=== PATIENT | male | born 1950 | race Caucasian/White ===

== ENCOUNTER 2016-10-03 14:33 | Inpatient (IN) | payer BC, OTHER ==
[~2016-10-03] VITALS: Ht 172.7 cm; Wt 76.0 kg
[~2016-10-03 14:33] MED LIST: ATOR10TA65 PO; CARV25TA97 PO; CHOL2000 PO; CILO100T PO; FER325 PO; FOLI-49 PO; GLUC1VIA7 IM; HYDR-3672 GTB; ISOS20TA19 PO; NOVO3I SC; TAMS-14 PO
[2016-10-03] MEDS ORDERED: CILO50TA PO (17:23)
[2016-10-03] MEDS ORDERED: HYDR-3671 PO (17:24)
[2016-10-03] MEDS ORDERED: CALC0.255 PO (17:24)
[2016-10-03] MEDS ORDERED: BUME2TAB PO (17:25)
[2016-10-03] MEDS ORDERED: SPIR100T31 PO (17:25)
[2016-10-03] MEDS ORDERED: LOSA100T7 PO (17:26)
[2016-10-03] MEDS ORDERED: AMLO5TAB4 PO (17:26)
[2016-10-03] MEDS ORDERED: PIOG45TA15 PO (17:27)
--- NOTE | 2016-10-03 17:45 | RADRPT ---
PROCEDURE: CHEST 1VW CLINICAL INDICATION: Abdominal pain TECHNIQUE: Single frontal view of the chest was obtained COMPARISON: 05/26/2016 FINDINGS: The cardiac size is mildly enlarged, stable. Aortic vascular calcifications are demonstrated. There is no pulmonary vascular congestion. The lungs are clear. No consolidation, effusion, or pneumothorax. Mild degenerative changes of the visualized osseous structures are visualized. IMPRESSION: 1. No acute cardiopulmonary process. 2. Atherosclerosis with stable mild cardiomegaly. RPTAT:PP .Best Go MD, Date Time Electronically viewed and signed by .Best Go MD, on 10/03/2016 17:44 .V/
--- NOTE | 2016-10-03 18:09 | ERD ---
ER Documentation Chief Complaint Date/Time DATE: 10/03/16 TIME: 17:52 Chief Complaint HIGH K+ LEVEL SENT BY MD DE LA VEGA This is a very pleasant 65-year-old male with past medical history of high cholesterol, hypertension and BPH that presents to the emergency department with abnormal outpatient lab work that indicated hyperkalemia. The patient does not know what his potassium level was but did receive a call from his primary care physician that stated he needed to urgently go to the emergency department in order to be further evaluated for an elevated potassium level. The patient states he denies any chest pain or pressure that radiates to the neck arm back or jaw. The patient states he is not on dialysis but does have renal failure taking bumetanide. The patient denies any shortness of breath at rest or exertion. Patient denies any hemoptysis hematemesis or melanotic stools. He denies any gross hematuria no frequency urgency or dysuria no urinary retention. ROS All systems reviewed and are negative except as per history of present illness. Medications Home Meds Active Scripts Tamsulosin Hcl* (Flomax*) 0.4 Mg Capsr, 0.4 MG PO DAILY@21, #1 CAP Prov:JAS RODRIGUEZ MD 08/01/15 Carvedilol* (Coreg*) 25 Mg Tab, 25 MG PO BID, #1 TAB Prov:JAS RODRIGUEZ MD 08/01/15 Reported Medications Pioglitazone Hcl* (Pioglitazone Hcl*) 45 Mg Tablet, 45 MG PO DAILY, TAB 10/03/16 Losartan Potassium* (Losartan Potassium*) 100 Mg Tablet, 100 MG PO DAILY, TAB 10/03/16 Amlodipine Besylate* (Norvasc*) 5 Mg Tablet, 5 MG PO DAILY, TAB 10/03/16 Bumetanide* (Bumex*) 2 Mg Tab, 2 MG PO BID, TAB 10/03/16 Spironolactone* (Spironolactone*) 100 Mg Tablet, 100 MG PO BID, TAB 10/03/16 Calcitriol* (Rocaltrol*) 0.25 Mcg Capsule, 0.25 MCG PO DAILY, CAP 10/03/16 Hydralazine Hcl* (Hydralazine Hcl*) 25 Mg Tab, 25 MG PO TID, #90 TAB 10/03/16 Cilostazol* (Cilostazol*) 50 Mg Tablet, 50 MG PO BID, TAB 10/03/16 Atorvastatin Calcium (Atorvastatin Calcium) 10 Mg Tablet, 10 MG PO QHS, #30 TAB 07/27/15 Folic Acid* (Folic Acid*) 1 Mg Tablet, 1 MG PO DAILY, TAB 07/27/15 Ferrous Sulfate* (Ferrous Sulfate*) 325 Mg Tabec, 325 MG PO TID, TAB 07/27/15 Discontinued Reported Medications Cilostazol* (Cilostazol*) 100 Mg Tablet, 100 MG PO BID, TAB 07/27/15 Discontinued Scripts Cholecalciferol* (Vitamin D3*) 2,000 Unit Cap, 2000 UNIT PO DAILY, #1 CAP Prov:JAS RODRIGUEZ MD 08/01/15 Isosorbide Dinitrate* (Isosorbide Dinitrate*) 20 Mg Tab, 20 MG PO TID, #1 TAB Prov:JAS RODRIGUEZ MD 08/01/15 Glucagon* (Glucagen*) 1 Mg Soln, 1 MG IM Q15M Y for DECREASED GLUCOSE, #1 Prov:JAS RODRIGUEZ MD 08/01/15 Hydralazine Hcl* (Hydralazine Hcl*) 50 Mg Tab, 50 MG GTB TID, #1 TAB Prov:JAS RODRIGUEZ MD 08/01/15 Insulin Aspart* (Novolog Insulin Pen*) 100 Unit/Ml Soln, 0 UNIT SC WITH MEALS BEDTIME, #1 Prov:JAS RODRIGUEZ MD 08/01/15 Allergies Allergies: Coded Allergies: No Known Allergy (Unverified , 10/03/16) PMhx/Soc History of Surgery: No Anesthesia Reaction: No Hx Neurological Disorder: No Hx Respiratory Disorders: No Hx Cardiac Disorders: Yes (HTN, HYPERLIPIDEMIA) Hx Psychiatric Problems: No Hx Miscellaneous Medical Probl: Yes (obesity) Hx Alcohol Use: No Hx Substance Use: No Hx Tobacco Use: Yes Smoking Status: Current every day smoker Physical Exam Vitals Vital Signs Date Time Temp Pulse Resp B/P Pulse Ox O2 Delivery O2 Flow Rate FiO2 10/03/16 20:36 98.3 65 18 198/79 99 Room Air 10/03/16 18:19 72 18 171/79 Room Air 10/03/16 16:30 71 18 194/71 Room Air 10/03/16 14:36 98.0 70 18 157/70 99 Physical Exam Constitutional:Well-developed. Well-nourished. HEENT:Normocephalic. Atraumatic.Pupils were equal round reactive to light. Moist mucous membranes.No tonsillar exudates. Neck: No nuchal rigidity. No lymphadenopathy. No posterior cervical spine tenderness or step-offs. Respiratory: Not using accessory muscles of respiration.Lungs were clear to auscultation bilaterally. No rhonchi. No rales. No wheezing. Cardiovascular: Regular rate regular rhythm.No murmurs. No rubs were appreciated.S1, S2 normal. Distal pulses are palpable 2+ bilaterally. GI: Abdomen was soft. Nontender. Non Distended. No pulsatile abdominal masses or bruits. No rebound. No guarding. Bowel sounds were present and normal. Muscle skeletal: Full range of motion of both the upper and lower extremities bilaterally.Normal muscle tone.No assymetrical calf tenderness or swelling. Skin: No petechia, no purpura. No lesions on the palms or the soles of the feet. No maculopapular rash. NEURO: Patient was alert, awake, orientated x3.No facial droop. Gait observed and normal with no ataxia.Speech had regular rate and rhythm. No focal neurological deficits. Result Diagram: 10/03/16 1810 10/03/16 1900 Results 24 hrs Laboratory Tests Test 10/03/16 18:10 10/03/16 19:00 White Blood Count 5.810^3/ul Red Blood Count 2.7710^6/ul Hemoglobin 8.5g/dl Hematocrit 26.8% Mean Corpuscular Volume 96.8fl Mean Corpuscular Hemoglobin 30.7pg Mean Corpuscular Hemoglobin Concent 31.7g/dl Red Cell Distribution Width 15.4% Platelet Count 52715^3/UL Mean Platelet Volume 11.3fl Neutrophils % 55.5% Lymphocytes % 21.0% Monocytes % 12.6% Eosinophils % 9.8% Basophils % 0.9% Nucleated Red Blood Cells % 0.0/100WBC Neutrophils # 3.210^3/ul Lymphocytes # 1.210^3/ul Monocytes # 0.710^3/ul Eosinophils # 0.610^3/ul Basophils # 0.110^3/ul Nucleated Red Blood Cells # 0.010^3/ul Prothrombin Time 14.7Sec Prothrombin Time Ratio 1.1 INR International Normalized Ratio 1.15 Activated Partial Thromboplast Time 31.0Sec Sodium Level 137mmol/L Potassium Level 6.5mmol/L Chloride Level 114mmol/L Carbon Dioxide Level 16mmol/L Anion Gap 14 Blood Urea Nitrogen 63mg/dl Creatinine 6.12mg/dl Glucose Level 79mg/dl Calcium Level 8.1mg/dl Total Bilirubin 0.1mg/dl Direct Bilirubin 0.00mg/dl Indirect Bilirubin 0.1mg/dl Aspartate Amino Transf (AST/SGOT) 55IU/L Alanine Aminotransferase (ALT/SGPT) 44IU/L Alkaline Phosphatase 69IU/L Troponin I < 0.012ng/ml Total Protein 5.6g/dl Albumin 2.4g/dl Globulin 3.20g/dl Albumin/Globulin Ratio 0.75 Amylase Level 102U/L Lipase 159U/L Current Medications Medications (Trade) Dose Ordered Sig/Crissy Route PRN Reason Start Time Stop Time Status Last Admin Dose Admin Furosemide (Lasix) 40 mg ONCE STAT IV 10/03/16 20:04 10/03/16 20:05 DC Sodium Polystyrene Sulfonate (Kayexalate) 30 gm ONCE STAT PO 10/03/16 20:04 10/03/16 20:05 DC Albuterol (Proventil 0.5% (Neb)) 15 mg ONCE STAT INH 10/03/16 20:04 10/03/16 20:05 DC Sodium Bicarbonate (Na Bicarb 8.4% Syg) 50 ml ONCE STAT IV 10/03/16 20:04 10/03/16 20:05 DC Calcium Chloride (Ca Chloride 10% Syg) 1,000 mg ONCE STAT IV 10/03/16 20:04 10/03/16 20:05 DC Ondansetron HCl (Zofran Inj) 4 mg ER BRIDGE PRN IV NAUSEA AND/OR VOMITING 10/03/16 21:00 10/04/16 20:59 Acetaminophen (Tylenol Tab) 650 mg ER BRIDGE PRN PO MILD PAIN/FEVER 10/03/16 21:00 10/04/16 20:59 Procedures/MDM This patient presented to the emergency department with abnormal ancillary laboratory work from an outpatient facility. The patient had IV access that was established by nursing staff and was placed on a lunchroom monitor with continuous pulse oximetry. 12 Lead EKG tracing ordered and reviewed by myself showed: Normal sinus rhythm of 64 bpm and no arrhythmia. CA interval prolonged at 260 ms with a first-degree AV block QRS duration normal. No ST segment elevation No ST segment depression. No changes consistent with acute ischemia. The patient had acute on chronic renal failure. July 31, 2016 the patient had been admitted to the hospital with a BUN of 27 and a creatinine of 2.53. Today on October 03, 2016 the patient's BUN was 63 and creatinine was 6.12. The patient had hyperkalemia today with potassium of 6.5. The patient was treated for his hyperkalemia given calcium chloride, sodium bicarb, Kayexalate, Lasix and albuterol. I did not feel the patient was stable for transfer given that he had severe hyperkalemia and therefore could deteriorate en route and going to cardiac arrest. Therefore the patient will be admitted in serious condition to the telemetry service with an anticipated stay of greater than 2 midnights under the care of our hospitalist Dr. Mark who kindly was at the bedside and immediately came to evaluate the patient. Departure Diagnosis: Primary Impression: Acute hyperkalemia Additional Impression: Renal failure (ARF), acute on chronic Condition: Serious JUAN M VANEGAS Oct 03, 2016 18:04
[2016-10-03 18:19] LABS: ADD SCAN DIFF NO
[2016-10-03 18:23] LABS: BASOPHIL # 0.1 10^3/ul (0.0-0.1); BASOPHILS % 0.9 % (0.0-2.0); EOSINOPHILS # 0.6 10^3/ul (0.0-0.5); EOSINOPHILS % 9.8 % (0.0-7.0); HEMATOCRIT 26.8 % (42.0-52.0); HEMOGLOBIN 8.5 g/dl (14.0-18.0); LYMPHOCYTES # 1.2 10^3/ul (0.8-2.9); MEAN CORPUSCULAR HEMOGLOBIN 30.7 pg (29.0-33.0); MEAN CORPUSCULAR HGB CONC 31.7 g/dl (32.0-37.0); MEAN CORPUSCULAR VOLUME 96.8 fl (82.0-101.0); MEAN PLATELET VOLUME 11.3 fl (7.4-10.4); MONOCYTE # 0.7 10^3/ul (0.3-0.9); MONOCYTES % 12.6 % (0.0-11.0); NEUTROPHIL # 3.2 10^3/ul (1.6-7.5); NEUTROPHILS % 55.5 % (39.0-77.0); PLATELET COUNT 202 10^3/UL (140-415); RED BLOOD COUNT 2.77 10^6/ul (4.70-6.10); RED CELL DISTRIBUTION WIDTH 15.4 % (11.5-14.5); WHITE BLOOD COUNT 5.8 10^3/ul (4.8-10.8)
[2016-10-03 18:34] LABS: INR 1.15; PROTIME 14.7 Sec (12.2-14.2); PT RATIO 1.1
[2016-10-03 19:53] LABS: ALBUMIN 2.4 g/dl (3.3-4.9); CHLORIDE 114 mmol/L (97-110); SODIUM 137 mmol/L (135-144)
[2016-10-03 19:55] LABS: AMYLASE 102 U/L (11-123); CREATININE 6.12 mg/dl (0.61-1.24)
[2016-10-03 19:56] LABS: ALANINE AMINOTRANSFERASE 44 IU/L (13-69); ALBUMIN/GLOBULIN RATIO 0.75; ALKALINE PHOSPHATASE 69 IU/L (42-121); ANION GAP 14 (8-16); ASPARTATE AMINO TRANSFERASE 55 IU/L (15-46); BILIRUBIN,INDIRECT 0.1 mg/dl (0-1.1); BILIRUBIN,TOTAL 0.1 mg/dl (0.2-1.3); BLOOD UREA NITROGEN 63 mg/dl (7-20); CALCIUM 8.1 mg/dl (8.4-10.2); CARBON DIOXIDE 16 mmol/L (21-31); GLUCOSE 79 mg/dl (70-220); TOTAL PROTEIN 5.6 g/dl (6.1-8.1)
[2016-10-03 19:59] LABS: TROPONIN-I < 0.012 ng/ml (0.00-0.12)
[2016-10-03 20:01] LABS: POTASSIUM 6.5 mmol/L (3.5-5.1)
[2016-10-03] MEDS ORDERED: CA CHLORIDE 10% 10 ML SYRINGE IV STA (20:04)
[2016-10-03] MEDS ORDERED: ALBUTEROL 0.5% (NEB) 2.5 MG/0.5 ML AMP INH STA (20:04)
[2016-10-03] MEDS ORDERED: FUROSEMIDE 40 MG INJ IV STA (20:04)
[2016-10-03] MEDS ORDERED: NA BICARBONATE 8.4% 50 ML SYG IV STA (20:04)
[2016-10-03] MEDS ORDERED: NA POLYST SULFON 15 GM/60 ML BTL PO STA (20:04)
[2016-10-03 20:36] VITALS: TEMP 98.3
[2016-10-03] MEDS ORDERED: TAMSULOSIN (SR) 0.4 MG CAP PO SCH (21:00)
[2016-10-03] MEDS ORDERED: HYDROCODONE/APAP (5/325) TAB PO PRN ×2 (21:00)
[2016-10-03] MEDS ORDERED: NACL 0.9% 3 ML SYG IV SCH (21:00)
[2016-10-03] MEDS ORDERED: METOCLOPRAMIDE 10 MG INJ IV PRN (21:00)
[2016-10-03] MEDS ORDERED: ACETAMINOPHEN 325 MG TAB PO PRN ×2 (21:00)
[2016-10-03] MEDS ORDERED: ONDANSETRON 4 MG INJ IV PRN (21:00)
--- NOTE | 2016-10-03 21:00 | HP ---
Date/Time of Note Date/Time of Note DATE: 10/03/16 TIME: 21:00 Assessment/Plan VTE Prophylaxis VTE Prophylaxis Intervention: anti-embolic stocking Assessment/Plan Assessment/Plan 1) Acute hyperkalemia - ADMIT to Telemetry - Serial Troponin - EKG in AM - AM Labs: CBC, CMP. HgbA1c, Magnesium 2) Renal failure (ARF), acute on chronic, Creatiine 5.31 - Gentle IV Hydration - CONSULT: Nephrology - Dr. Cortés 3) Hypertension - Resume Home Medicaations 4) Anemia - Resume Iron Replacement 4) BPH - Resume Tamulosin HPI/ROS Admit Date/Time Admit Date/Time 10/03/162037 Hx of Present Illness This is a very pleasant 65-year-old male with past medical history of high cholesterol, hypertension and BPH that presents to the emergency department with abnormal outpatient lab work that indicated hyperkalemia. The patient does not know what his potassium level was but did receive a call from his primary care physician that stated he needed to urgently go to the emergency department in order to be further evaluated for an elevated potassium level. The patient states he denies any chest pain or pressure that radiates to the neck arm back or jaw. The patient states he is not on dialysis but does have renal failure taking bumetanide. The patient denies any shortness of breath at rest or exertion. Patient denies any hemoptysis hematemesis or melanotic stools. He denies any gross hematuria no frequency urgency or dysuria no urinary retention. ER Course per ER Physician: This patient presented to the emergency department with abnormal ancillary laboratory work from an outpatient facility. The patient had IV access that was established by nursing staff and was placed on a air sampling and monitoring with continuous pulse oximetry.The patient had acute on chronic renal failure. July 31, 2016 the patient had been admitted to the hospital with a BUN of 27 and a creatinine of 2.53. Today on October 03, 2016 the patient' s BUN was 63 and creatinine was 6.12. The patient had hyperkalemia today with potassium of 6.5. The patient was treated for his hyperkalemia given calcium chloride, sodium bicarb, Kayexalate, Lasix and albuterol. I did not feel the patient was stable for transfer given that he had severe hyperkalemia and therefore could deteriorate en route and going to cardiac arrest. Therefore the patient will be admitted in serious condition to the telemetry service with an anticipated stay of greater than 2 midnights under the care of our hospitalist Dr. Houston who kindly was at the bedside and immediately came to evaluate the patient. ROS General: Admits: Denies: Fever, Chills, Poor Appetite, Generalized Body Aches Eyes: Admits: Denies: Blurry Vision, Double Vision HENT: Admits: Denies: Ear Pain/Pressure, Runny/Stuffy Nose, Sore Throat Cardiovascular: Admits: Denies: Chest Pain, Palpitations, Leg Swelling Pulmonary: Admits: Denies: Cough, Wheeze, Shortness of Breath Gastrointestinal: Admits: Denies: Abdominal Pain, Nausea, Vomiting, Diarrhea, Blood in Stool, Black-Colored Stool Urogenital: Admits: Denies: Burning with Urination, Urinary Frequency, Blood in Urine Musculoskeletal: Admits: Denies: Joint Pain, Joint Swelling, Muscle Pain Neurological: Admits: Denies: Headache, Dizziness, Numbness, Tingling, Shooting Pains Integumentary: Admits: Denies: Rash, Itch PMH/Family/Social Past Medical History Medical History: high cholesterol, hypertension Past Surgical History Past Surgical Hx: no surgical history Social History Alcohol Use: none Smoking Status: Current every day smoker Drug Use: none Exam/Review of Systems Vital Signs Vitals Vital Signs Date Time Temp Pulse Resp B/P Pulse Ox O2 Delivery O2 Flow Rate FiO2 10/03/16 20:36 98.3 65 18 198/79 99 Room Air Exam Exam General: WD/wN 66 year old male, alert and oriented, in no acut distress Eyes: Sclera White, EOMI HENT: Normocephalic/Atraumatic, External Ears/Nose Normal, Moist Mucus Membranes Neck: Supple, Trachea Midline Cardiovascular: Normal Rate, Regular Rhythm, Normal S1 and S2, No Murmur, No Extra Sounds. Radial pulse +2/4. No pedal Edema. Pulmonary: Clear to Auscultation Bilaterally, Normal Respiratory Effort, No Rales, Rhonchi or Wheezes Gastrointestinal: Normoactive Bowel Sounds, Soft, Non-Tender/Non-Distended, No Hepatosplenomegaly Appreciated, No Pulsatile Masses Urogenital: Deferred Musculoskeletal: Normal Muscle Bulk and Tone Neurological: CN II - XII Grossly Intact, Non-Focal, Speech Normal Integumentary: Normal Moisture and Temperature, Good Turgor, No Jaundice, No Rash Lymphatic: No Cervical Lymphadenopathy Psychiatric: Appropriate Mood and Affect, Good Eye Contact Labs Result Diagram: 10/03/16180910/03/16 1900 Medications Medications Home Meds Active Scripts Tamsulosin Hcl* (Flomax*) 0.4 Mg Capsr, 0.4 MG PO DAILY@21, #1 CAP Prov:JAS RODRIGUEZ MD 08/01/15 Carvedilol* (Coreg*) 25 Mg Tab, 25 MG PO BID, #1 TAB Prov:JAS RODRIGUEZ MD 08/01/15 Reported Medications Pioglitazone Hcl* (Pioglitazone Hcl*) 45 Mg Tablet, 45 MG PO DAILY, TAB 10/03/16 Losartan Potassium* (Losartan Potassium*) 100 Mg Tablet, 100 MG PO DAILY, TAB 10/03/16 Amlodipine Besylate* (Norvasc*) 5 Mg Tablet, 5 MG PO DAILY, TAB 10/03/16 Bumetanide* (Bumex*) 2 Mg Tab, 2 MG PO BID, TAB 10/03/16 Spironolactone* (Spironolactone*) 100 Mg Tablet, 100 MG PO BID, TAB 10/03/16 Calcitriol* (Rocaltrol*) 0.25 Mcg Capsule, 0.25 MCG PO DAILY, CAP 10/03/16 Hydralazine Hcl* (Hydralazine Hcl*) 25 Mg Tab, 25 MG PO TID, #90 TAB 10/03/16 Cilostazol* (Cilostazol*) 50 Mg Tablet, 50 MG PO BID, TAB 10/03/16 Atorvastatin Calcium (Atorvastatin Calcium) 10 Mg Tablet, 10 MG PO QHS, #30 TAB 07/27/15 Folic Acid* (Folic Acid*) 1 Mg Tablet, 1 MG PO DAILY, TAB 07/27/15 Ferrous Sulfate* (Ferrous Sulfate*) 325 Mg Tabec, 325 MG PO TID, TAB 07/27/15 Current Medications Medications (Trade) Dose Ordered Sig/Crissy Route PRN Reason Start Time Stop Time Status Last Admin Dose Admin Furosemide (Lasix) 40 mg ONCE STAT IV 10/03/16 20:04 10/03/16 20:05 DC Sodium Polystyrene Sulfonate (Kayexalate) 30 gm ONCE STAT PO 10/03/16 20:04 10/03/16 20:05 DC Albuterol (Proventil 0.5% (Neb)) 15 mg ONCE STAT INH 10/03/16 20:04 10/03/16 20:05 DC Sodium Bicarbonate (Na Bicarb 8.4% Syg) 50 ml ONCE STAT IV 10/03/16 20:04 10/03/16 20:05 DC Calcium Chloride (Ca Chloride 10% Syg) 1,000 mg ONCE STAT IV 10/03/16 20:04 10/03/16 20:05 DC Ondansetron HCl (Zofran Inj) 4 mg ER BRIDGE PRN IV NAUSEA AND/OR VOMITING 10/03/16 21:00 10/04/16 20:59 Acetaminophen (Tylenol Tab) 650 mg ER BRIDGE PRN PO MILD PAIN/FEVER 10/03/16 21:00 10/04/16 20:59 Procedures Procedures Laboratory Tests Test 10/03/16 18:10 10/03/16 19:00 White Blood Count 5.810^3/ul Red Blood Count 2.7710^6/ul Hemoglobin 8.5g/dl Hematocrit 26.8% Mean Corpuscular Volume 96.8fl Mean Corpuscular Hemoglobin 30.7pg Mean Corpuscular Hemoglobin Concent 31.7g/dl Red Cell Distribution Width 15.4% Platelet Count 22570^3/UL Mean Platelet Volume 11.3fl Neutrophils % 55.5% Lymphocytes % 21.0% Monocytes % 12.6% Eosinophils % 9.8% Basophils % 0.9% Nucleated Red Blood Cells % 0.0/100WBC Neutrophils # 3.210^3/ul Lymphocytes # 1.210^3/ul Monocytes # 0.710^3/ul Eosinophils # 0.610^3/ul Basophils # 0.110^3/ul Nucleated Red Blood Cells # 0.010^3/ul Prothrombin Time 14.7Sec Prothrombin Time Ratio 1.1 INR International Normalized Ratio 1.15 Activated Partial Thromboplast Time 31.0Sec Sodium Level 137mmol/L Potassium Level 6.5mmol/L Chloride Level 114mmol/L Carbon Dioxide Level 16mmol/L Anion Gap 14 Blood Urea Nitrogen 63mg/dl Creatinine 6.12mg/dl Glucose Level 79mg/dl Calcium Level 8.1mg/dl Total Bilirubin 0.1mg/dl Direct Bilirubin 0.00mg/dl Indirect Bilirubin 0.1mg/dl Aspartate Amino Transf (AST/SGOT) 55IU/L Alanine Aminotransferase (ALT/SGPT) 44IU/L Alkaline Phosphatase 69IU/L Troponin I < 0.012ng/ml Total Protein 5.6g/dl Albumin 2.4g/dl Globulin 3.20g/dl Albumin/Globulin Ratio 0.75 Amylase Level 102U/L Lipase 159U/L EKG: Interpreted by ER Physician: Normal sinus rhythm of 64 bpm and no arrhythmia. IL interval prolonged at 260 ms with a first-degree AV block QRS duration normal. No ST segment elevation No ST segment depression. No changes consistent with acute ischemia. PROCEDURE: CHEST 1VW CLINICAL INDICATION: Abdominal pain TECHNIQUE: Single frontal view of the chest was obtained COMPARISON: 05/26/2016 IMPRESSION: 1. No acute cardiopulmonary process. 2. Atherosclerosis with stable mild cardiomegaly. GEAL HOUSTON DO Oct 03, 2016 21:00
[2016-10-03] MEDS ORDERED: GLUCAGON 1 MG INJ IM PRN (22:00)
[2016-10-03] MEDS ORDERED: GLUCOSE GEL 15 GRAM TUBE PO PRN ×2 (22:00)
[2016-10-03] MEDS ORDERED: DEXTROSE 50% 50 ML SYRINGE IV PRN ×2 (22:00)
[2016-10-03] MEDS ORDERED: GLUCOSE GEL 15 GRAM TUBE BUCCAL PRN (22:00)
[2016-10-03 22:24] VITALS: Ht 172.7 cm; Wt 76.0 kg
[2016-10-03 22:30] VITALS: BP 178/61; PULSE 66; RESP 18
[2016-10-03] MEDS: FERROUS SULFATE (EC) 325 MG TAB PO SCH (22:44)
[2016-10-03] MEDS: BUMETANIDE 1 MG TAB PO SCH (22:45)
[2016-10-03] MEDS: ATORVASTATIN 10 MG TAB PO SCH (22:45)
[2016-10-03] MEDS: FAMOTIDINE 20 MG TAB PO SCH (22:46)
[2016-10-03 22:47] VITALS: PULSE 68
[2016-10-03] MEDS: CILOSTAZOL 100 MG TAB PO SCH (23:27)
[2016-10-04] VITALS (12 sets, daily range): BP systolic 104–162; BP diastolic 49–72; PULSE 69–80; RESP 18–20
[2016-10-04 00:38] LABS: POTASSIUM 6.6 mmol/L (3.5-5.1)
[2016-10-04] MEDS ORDERED: NA POLYST SULFON 15 GM/60 ML BTL PO ONE (01:00)
[2016-10-04] MEDS ORDERED: NA POLYST SULFON 15 GM/60 ML BTL PR ONE (03:00)
[2016-10-04] MEDS: BUMETANIDE 1 MG TAB PO SCH (05:17)
[2016-10-04 07:35] LABS: ADD SCAN DIFF NO
[2016-10-04 07:41] LABS: BASOPHILS % 0.7 % (0.0-2.0); EOSINOPHILS # 0.6 10^3/ul (0.0-0.5); HEMATOCRIT 26.9 % (42.0-52.0); HEMOGLOBIN 8.3 g/dl (14.0-18.0); LYMPHOCYTES # 1.2 10^3/ul (0.8-2.9); LYMPHOCYTES % 21.4 % (15.0-51.0); MEAN CORPUSCULAR HEMOGLOBIN 29.6 pg (29.0-33.0); MEAN CORPUSCULAR HGB CONC 30.9 g/dl (32.0-37.0); MEAN CORPUSCULAR VOLUME 96.1 fl (82.0-101.0); MEAN PLATELET VOLUME 11.5 fl (7.4-10.4); MONOCYTE # 0.6 10^3/ul (0.3-0.9); MONOCYTES % 11.7 % (0.0-11.0); NEUTROPHILS % 54.8 % (39.0-77.0); PLATELET COUNT 204 10^3/UL (140-415); RED CELL DISTRIBUTION WIDTH 15.6 % (11.5-14.5); WHITE BLOOD COUNT 5.4 10^3/ul (4.8-10.8)
[2016-10-04 08:12] LABS: ALBUMIN 2.4 g/dl (3.3-4.9); ALBUMIN/GLOBULIN RATIO 0.77; BILIRUBIN,INDIRECT 0.1 mg/dl (0-1.1); BILIRUBIN,TOTAL 0.1 mg/dl (0.2-1.3); CALCIUM 8.9 mg/dl (8.4-10.2); CREATININE 5.83 mg/dl (0.61-1.24); POTASSIUM 5.8 mmol/L (3.5-5.1); TOTAL PROTEIN 5.5 g/dl (6.1-8.1)
[2016-10-04] MEDS: CILOSTAZOL 100 MG TAB PO SCH ×2 (08:51→20:22)
[2016-10-04] MEDS: FOLIC ACID 1 MG TAB PO SCH (08:51)
[2016-10-04] MEDS: CALCITRIOL 0.25 MCG CAP PO SCH (08:51)
[2016-10-04] MEDS: FERROUS SULFATE (EC) 325 MG TAB PO SCH ×3 (08:52→20:23)
[2016-10-04] MEDS ORDERED: PIOGLITAZONE 45 MG TAB PO SCH (09:00)
[2016-10-04] MEDS ORDERED: AMLODIPINE 5 MG TAB PO SCH (09:00)
[2016-10-04] MEDS ORDERED: LOSARTAN 50 MG TAB PO SCH (09:00)
--- NOTE | 2016-10-04 11:13 | PN ---
Date/Time of Note Date/Time of Note DATE: 10/04/16 TIME: 11:07 Assessment/Plan VTE Prophylaxis VTE Prophylaxis Intervention: LMWH Lines/Catheters IV Catheter Type (from [facility]): Saline Lock Assessment/Plan Problems: (1) BPH (benign prostatic hypertrophy) with urinary obstruction Status: Chronic Comment: Check postvoid residual. Attempts listens not actually the best choice in the setting giving her blood pressure. He be better off with an alpha blocking agents and then get rid of the amlodipine due to lower extremity edema that this is causing. In addition he is on other medicines to cause lower extremity edema see below (2) Chronic kidney disease, stage V Status: Chronic Comment: His regular city library director is Dr. Hansen. We will get him stabilized for outpatient management. He is going to be needing dialysis sometime in the near future (3) Essential hypertension Status: Chronic Comment: The regimen that he is on has some functional challenges. Again the amlodipine is a very poor choice in this setting especially the high-grade proteinuria the addition of the fluid retention would not be in his best interest. We will taper this down replace with an alpha blocking agent which will also help with his BPH. This would allow us to not use any diuretics which would then avoid the need to try and balance potassium wasting versus potassium sparing (4) Diastolic dysfunction Status: Chronic Comment: He is already on carvedilol for this (5) Acute hyperkalemia Status: Acute Comment: This is improved (6) Hypertension Status: Chronic Comment: See above Qualifiers: Hypertension type: essential hypertension Qualified Code: I10 - Essential hypertension Assessment/Plan Diabetes mellitus type 2. Again fluid retention is an issue for this patient. Full dose pioglitazone is not what I would use here. We will switch him over to a DPP 4 drug renally dose adjusted Subjective 24 Hr Interval Summary Free Text/Dictation Challenging historian. His regular city library director is Dr. Hansen. Constitutional: no complaints (Denies fever chills or sweats) Respiratory: no complaints (Denies shortness of breath) Cardiovascular: no complaints (Denies chest pain or palpitation) Gastrointestinal: no complaints Genitourinary: no complaints Musculoskeletal: no complaints Neurologic: no complaints Exam/Review of Systems Vital Signs Vitals Vital Signs Date Time Temp Pulse Resp B/P Pulse Ox O2 Delivery O2 Flow Rate FiO2 10/04/16 08:11 74 10/04/16 07:50 98.4 20 157/72 96 10/04/16 04:22 Room Air Intake and Output 10/03/16 10/03/16 10/04/16 15:00 23:00 07:00 Intake Total 300 ml Output Total 300 ml Balance 0 ml Exam Constitutional: alert, oriented Neck: non-tender, supple Respiratory: clear to auscultation, normal air movement Cardiovascular: nl pulses, regular rate and rhythm Gastrointestinal: nl liver, spleen, non-tender, soft Results Result Diagram: 10/04/16 0530 10/04/16 0530 Results 24 hrs Laboratory Tests Test 10/03/16 18:10 10/03/16 19:00 10/03/16 23:20 10/04/16 05:30 White Blood Count 5.8 # 5.4 Red Blood Count 2.77 L 2.80 L Hemoglobin 8.5 L 8.3 L Hematocrit 26.8 L 26.9 L Mean Corpuscular Volume 96.8 96.1 Mean Corpuscular Hemoglobin 30.7 29.6 Mean Corpuscular Hemoglobin Concent 31.7 L 30.9 L Red Cell Distribution Width 15.4 H 15.6 H Platelet Count 202 204 Mean Platelet Volume 11.3 H 11.5 H Neutrophils % 55.5 54.8 Lymphocytes % 21.0 21.4 Monocytes % 12.6 H 11.7 H Eosinophils % 9.8 H 11.0 H Basophils % 0.9 0.7 Nucleated Red Blood Cells % 0.0 0.0 Neutrophils # 3.2 3.0 Lymphocytes # 1.2 1.2 Monocytes # 0.7 0.6 Eosinophils # 0.6 H 0.6 H Basophils # 0.1 0.0 Nucleated Red Blood Cells # 0.0 0.0 Prothrombin Time 14.7 H Prothrombin Time Ratio 1.1 INR International Normalized Ratio 1.15 Activated Partial Thromboplast Time 31.0 Hemoglobin A1c 5.5 Sodium Level 137 136 139 Potassium Level 6.5 *H 6.6 *H 5.8 H Chloride Level 114 H 119 H 120 H Carbon Dioxide Level 16 L 16 L 18 L Anion Gap 14 8 7 L Blood Urea Nitrogen 63 H 60 H Creatinine 6.12 H 5.83 H Glucose Level 79 84 Calcium Level 8.1 L 8.9 Magnesium Level 2.0 Total Bilirubin 0.1 L 0.1 L Direct Bilirubin 0.00 0.00 Indirect Bilirubin 0.1 0.1 Aspartate Amino Transf (AST/SGOT) 55 H 59 H Alanine Aminotransferase (ALT/SGPT) 44 46 Alkaline Phosphatase 69 62 Troponin I < 0.012 Total Protein 5.6 L 5.5 L Albumin 2.4 L 2.4 L Globulin 3.20 3.10 Albumin/Globulin Ratio 0.75 0.77 Amylase Level 102 Lipase 159 Medications Medications Current Medications Metoclopramide HCl (Reglan) 10 mg Q6H PRN IV NAUSEA AND/OR VOMITING; Start at 21:00 Acetaminophen (Tylenol Tab) 650 mg Q6H PRN PO PAIN LEVEL 1-3 OR FEVER; Start at 21:00 Acetaminophen/ Hydrocodone Bitart ([place] (5/325)) 1 tab Q6H PRN PO PAIN LEVEL 4 -6; Start 10/03/16 at 21:00 Acetaminophen/ Hydrocodone Bitart ([place] (5/325)) 2 tab Q6H PRN PO PAIN LEVEL 7 -10; Start 10/03/16 at 21:00 Famotidine (Pepcid) 20 mg HS PO Last administered on 10/03/16 22:46; Admin Dose 20 MG; Start 10/03/16 at 21:00 Amlodipine Besylate (Norvasc) 5 mg DAILY PO Last administered on 10/04/16 08: 51; Admin Dose 5 MG; Start 10/04/16 at 09:00 Atorvastatin Calcium (Lipitor) 10 mg QHS PO Last administered on 10/03/16 22: 45; Admin Dose 10 MG; Start 10/03/16 at 21:00 Calcitriol (Rocaltrol) 0.25 mcg DAILY PO Last administered on 10/04/16 08:51; Admin Dose 0.25 MCG; Start 10/04/16 at 09:00 Carvedilol (Coreg) 25 mg BID PO Last administered on 10/04/16 08:52; Admin Dose 25 MG; Start 10/03/16 at 21:00 Cilostazol (Pletal) 50 mg BID PO Last administered on 10/04/16 08:51; Admin Dose 50 MG; Start 10/03/16 at 21:00 Ferrous Sulfate (Ferrous Sulfate (Ec)) 325 mg TID PO Last administered on 08:52; Admin Dose 325 MG; Start 10/03/16 at 21:00 Folic Acid (Folic Acid) 1 mg DAILY PO Last administered on 10/04/16 08:51; Admin Dose 1 MG; Start 10/04/16 at 09:00 Hydralazine HCl (Apresoline) 25 mg TID PO Last administered on 10/04/16 08:51 ; Admin Dose 25 MG; Start 10/03/16 at 21:00 Losartan Potassium (Cozaar) 100 mg DAILY PO Last administered on 10/04/16 08: 52; Admin Dose 100 MG; Start 10/04/16 at 09:00; Status Future Hold Pioglitazone HCl (Actos) 45 mg DAILY PO Last administered on 10/04/16 08:51; Admin Dose 45 MG; Start 10/04/16 at 09:00 Miscellaneous Information 1 ea NOTE XX ; Start 10/03/16 at 22:00 Glucose (Glutose) 15 gm Q15M PRN PO DECREASED GLUCOSE; Start 10/03/16 at 22:00 Glucose (Glutose) 22.5 gm Q15M PRN PO DECREASED GLUCOSE; Start 10/03/16 at 22: 00 Dextrose (D50w Syringe) 25 ml Q15M PRN IV DECREASED GLUCOSE; Start 10/03/16 at 22:00 Dextrose (D50w Syringe) 50 ml Q15M PRN IV DECREASED GLUCOSE; Start 10/03/16 at 22:00 Glucagon (Glucagen) 1 mg Q15M PRN IM DECREASED GLUCOSE; Start 10/03/16 at 22:00 Glucose (Glutose) 15 gm Q15M PRN BUCCAL DECREASED GLUCOSE; Start 10/03/16 at 22 :00 Doxazosin Mesylate (Cardura) 2 mg HS PO ; Start 10/04/16 at 21:00; Status UNV Doxazosin Mesylate (Cardura) 1 mg ONCE ONCE PO ; Start 10/04/16 at 11:00; Stop 10/04/16 at 11:01; Status HANNAH JOHNS MD Oct 04, 2016 11:13
--- NOTE | 2016-10-04 11:37 | CONS ---
DATE OF ADMISSION: 10/03/2016 DATE OF CONSULTATION: 10/04/2016 TYPE OF CONSULTATION: Nephrology. REASON FOR CONSULTATION: Hyperkalemia, acute kidney injury, CKD. PHYSICIAN REQUESTING CONSULT: Dr. Leal HISTORY OF PRESENT ILLNESS: This is a 65-year-old male with a past medical history of hypertension, diabetes, history of CKD stage IV/V, who presents to [facility] for elevation of hyperkalemia in outpatient setting. The patient states that he had laboratories drawn at an outpati ent setting and was noted to be hyperkalemic. As a result, he was brought into the emergency room. Upon arrival to the ED, the patient was noted to have potassium 6.5, BUN 63, creatinine 6.12. In t he ER, the patient was given Kayexalate, was given sodium bicarbonate, given 1 dose of Lasix and adm itted to telemetry for further evaluation. The patient upon arrival denied any chest pain, any naus ea, vomiting. Denied any shortness of breath. In terms of patient's renal history, the patient is being seen by project portfolio analyst in outpatient setting , ____. The patient states that he has chronic kidney disease stage V and has been close to patricia lysis, but is being managed by his project portfolio analyst. The patient states that his CKD is due to diabetes . He denies any nausea, vomiting, any shortness of breath as stated above. The patient was taking Aldactone in outpatient setting and is also on an ARB. Currently, the patient's potassium has impro dago to 5.8 mEq/dL after receiving Kayexalate. The patient also denies any rashes. No other events noted. PAST MEDICAL HISTORY: History of hypertension, diabetes, CKD. PAST SURGICAL HISTORY: None. ALLERGIES: NO KNOWN DRUG ALLERGIES. FAMILY HISTORY: Noncontributory. SOCIAL HISTORY: Does not drink, smoke or do drugs. REVIEW OF SYSTEMS: A 14-point review of systems was conducted. Pertinent positives in HPI, otherwi se negative. The patient medications have been reviewed. PHYSICAL EXAMINATION: VITAL SIGNS: Blood pressure is 157/72, respirations 20, pulse 73, temperature 98.4. HEENT: Head is normocephalic. NECK: Supple. HEART: Regular rate. LUNGS: Show diminished breath sounds at the base. ABDOMEN: Soft, nontender to palpation. No rebound or guarding. EXTREMITIES: Negative for clubbing, cyanosis, no edema. DERMATOLOGIC: No rashes. MUSCULOSKELETAL: No joint effusions. NEUROLOGIC: No focal deficits. LABORATORY DATA: Shows a white count 5.4, hemoglobin 9.3, hematocrit ____.9, platelet count of 204. Sodium 139, potassium 5.8, chloride 120, BUN 60, creatinine 5.83. IMAGING STUDIES: Chest x-ray shows no acute findings. ASSESSMENT AND PLAN: This is a 65-year-old male who presents with: 1. Nonoliguric acute kidney injury on top of chronic kidney disease stage IV/V with unknown baselin e creatinine. Etiology of current acute kidney injury is likely hemodynamics due to diuretic therap y ARB effect. The patient's renal function has improved with initial supportive care. The patient has no overt uremic symptoms. Plan at this point is to continue current treatment plan, supportive care, renally dose all meds, continue to hold diuretic therapy. We will monitor renal function clos hamzah. I did speak with the patient, informing him that if his renal function does not improve or he should develop overt uremic signs or symptoms, or if his hyperkalemia cannot be controlled medically , that he would need dialysis. The patient was reticent to initiate dialysis at this time. 2. Hyperkalemia. Etiology is likely secondary to ARB effect, Aldactone effect in conjunction with chronic kidney disease. The patient is status post Kayexalate with improvement in potassium levels. Will continue to monitor. Will monitor serum potassium levels. If the patient's hyperkalemia can not be medically managed, we will need to initiate renal replacement therapy. 3. Metabolic acidosis secondary to chronic kidney disease. Will continue to monitor bicarbonate le vels, consider bicarbonate therapy. 4. Mineral bone disorder. Monitor calcium and phosphorus levels. Continue vitamin D analogs. 5. Anemia of chronic disease. Monitor hemoglobin and hematocrit levels. Will give Epogen as neede d. 6. Diabetes. Continue Accu-Cheks, insulin sliding scale. 7. Hypertension. Continue current blood pressure regimen. Thank you, Dr. Leal, for this interesting consultation. It will be a pleasure to follow patient with you throughout the hospital course. Dictated By: EWA LANCASTER/KRYSTINA Conf#: [id number] DID#: [id number] CC: PANCHITO LEAL MD;*[facility]*
[2016-10-04] MEDS ORDERED: DOXAZOSIN 1 MG TAB PO SCH (12:00)
[2016-10-04] MEDS: LINAGLIPTIN 5 MG TABLET PO SCH (12:27)
--- NOTE | 2016-10-04 14:51 | RADRPT ---
Vent Rate: 70 bpm RR Interval: 0 msec IA Interval: 224 msec QRS Duration: 86 msec QT Interval: 354 msec QTC Interval: 382 msec P-R-T [place]: 59 - -14 - 36 degrees Sinus rhythm with 1st degree AV block Otherwise normal ECG No previous tracing available for comparison Electronically Signed By: Mundo Brantley [id number]
[2016-10-04 16:05] LABS: CREATININE 5.79 mg/dl (0.61-1.24)
[2016-10-04 16:06] LABS: CALCIUM 8.4 mg/dl (8.4-10.2)
[2016-10-04 16:09] LABS: POTASSIUM 5.7 mmol/L (3.5-5.1)
--- NOTE | 2016-10-04 16:14 | RADRPT ---
PROCEDURE: US Renal CLINICAL INDICATION: Acute renal insufficiency TECHNIQUE: Multiple sonographic images of the kidneys and bladder were obtained. Evaluation of th e kidneys and bladder was performed as well with sandoval scale and color and Doppler evaluation using a curved array transducer. The images were reviewed on a high-resolution PACS workstation. COMPARISON: No prior studies are available for comparison. FINDINGS: The right kidney measures 12.1 x 5.4 x 4.3 cm. The left kidney measures 12.5 x 6.2 x 5.2 cm. There is normal echogenicity within the parenchyma of the kidneys bilaterally. There is no mass, calculus, or obstructive uropathy. No perinephric fluid collection is seen. Bladder is smoothly outlined without filling defects. There is mild prostatomegaly at 5.2 x 4.9 x 5 .7 cm. IMPRESSION: 1. Unremarkable renal ultrasound. 2. Mild prostatomegaly. RPTAT: [facility] Physician Brenna Date Time Electronically viewed and signed by Physician Brenna on 10/04/2016 16:14 /
[2016-10-04] MEDS: ATORVASTATIN 10 MG TAB PO SCH (20:22)
[2016-10-04] MEDS: FAMOTIDINE 20 MG TAB PO SCH (20:23)
[2016-10-04] MEDS: DOXAZOSIN 2 MG TAB PO SCH (20:23)
[2016-10-05] VITALS (12 sets, daily range): BP systolic 96–132; BP diastolic 49–86; PULSE 65–73; RESP 18–20
[2016-10-05 01:27] LABS: ADD UMIC YES; URINE BILIRUBIN (Dip) NEGATIVE (NEGATIVE); URINE BLOOD (Dip) 2+ (NEGATIVE); URINE COLOR LT. YELLOW (YELLOW); URINE KETONES (Dip) NEGATIVE (NEGATIVE); URINE LEUKOCYTE ESTERASE (Dip) NEGATIVE (NEGATIVE); URINE NITRITE (Dip) NEGATIVE (NEGATIVE); URINE TOTAL PROTEIN (Dip) 4+ (NEGATIVE); URINE UROBILINOGEN (Dip) 0.2 E.U./dL (0.1-1.0)
[2016-10-05 02:27] LABS: SQUAMOUS EPITHELIAL CELL,UR FEW
[2016-10-05 07:53] LABS: ADD SCAN DIFF NO
[2016-10-05 07:54] LABS: CREATININE 5.89 mg/dl (0.61-1.24); MAGNESIUM 1.8 mg/dl (1.7-2.5); PHOSPHORUS 6.5 mg/dl (2.5-4.9); POTASSIUM 5.5 mmol/L (3.5-5.1)
[2016-10-05 07:54] LABS: BASOPHILS % 0.6 % (0.0-2.0); EOSINOPHILS # 0.5 10^3/ul (0.0-0.5); HEMATOCRIT 23.3 % (42.0-52.0); HEMOGLOBIN 7.1 g/dl (14.0-18.0); LYMPHOCYTES # 1.2 10^3/ul (0.8-2.9); LYMPHOCYTES % 22.5 % (15.0-51.0); MEAN CORPUSCULAR HEMOGLOBIN 29.5 pg (29.0-33.0); MEAN CORPUSCULAR HGB CONC 30.5 g/dl (32.0-37.0); MEAN CORPUSCULAR VOLUME 96.7 fl (82.0-101.0); MEAN PLATELET VOLUME 11.5 fl (7.4-10.4); MONOCYTE # 0.7 10^3/ul (0.3-0.9); NEUTROPHILS % 54.7 % (39.0-77.0); PLATELET COUNT 150 10^3/UL (140-415); RED BLOOD COUNT 2.41 10^6/ul (4.70-6.10); RED CELL DISTRIBUTION WIDTH 15.8 % (11.5-14.5); WHITE BLOOD COUNT 5.4 10^3/ul (4.8-10.8)
[2016-10-05] MEDS: CILOSTAZOL 100 MG TAB PO SCH ×2 (08:31→20:49)
[2016-10-05] MEDS: LINAGLIPTIN 5 MG TABLET PO SCH (08:31)
[2016-10-05] MEDS: FERROUS SULFATE (EC) 325 MG TAB PO SCH ×3 (08:31→20:49)
[2016-10-05] MEDS: FOLIC ACID 1 MG TAB PO SCH (08:32)
[2016-10-05] MEDS: CALCITRIOL 0.25 MCG CAP PO SCH (08:35)
[2016-10-05] MEDS ORDERED: AMLODIPINE 5 MG TAB PO SCH (09:00)
[2016-10-05] MEDS ORDERED: EPOETIN 4000 UNITS/1 ML INJ (ESRD) SC ONE (10:00)
[2016-10-05] MEDS ORDERED: NA POLYST SULFON 15 GM/60 ML BTL PO ONE (10:00)
[2016-10-05 10:03] LABS: IRON 96 ug/dl (35-150)
[2016-10-05 10:17] LABS: TOTAL IRON BINDING CAPACITY 190 ug/dl (241-421)
[2016-10-05] MEDS: SOD CHLORIDE 0.9% 1,000 ML IV SCH (10:25)
--- NOTE | 2016-10-05 10:37 | PN ---
Date/Time of Note Date/Time of Note DATE: 10/05/16 TIME: 10:32 Assessment/Plan VTE Prophylaxis VTE Prophylaxis Intervention: LMWH Lines/Catheters [facility]from [facility] Saline Lock Urinary Cath still in place: No Assessment/Plan Problems: (1) BPH (benign prostatic hypertrophy) with urinary obstruction Status: Chronic Comment: Tolerating alpha blockade. This is allowing us to use less amlodipine in fact the amlodipine should be discontinued. In addition the hydralazine can be curtailed and the other medications can be modified. Overall he can have as much simpler regimen (2) Chronic kidney disease, stage V Status: Chronic Comment: He will need dialysis going forward. He is only willing to discuss this with his primary pl sql developer Dr. Rosas in addition is rather anemic we will treat with Epogen (3) Essential hypertension Status: Chronic Comment: Much better control with changes in regimen which are much more logical regimen (4) Left bundle branch block Status: Chronic Comment: Noted (5) Diastolic dysfunction Status: Chronic Comment: Controlled with beta-blockade (6) Acute hyperkalemia Status: Acute Comment: Continue trying to correct. Subjective 24 Hr Interval Summary Free Text/Dictation Patient reports he understands our position that he needs dialysis he wishes to discuss that with his regular pl sql developer. Constitutional: no complaints Respiratory: no complaints Cardiovascular: no complaints Gastrointestinal: no complaints Exam/Review of Systems Vital Signs Vitals Vital Signs Date Time Temp Pulse Resp B/P Pulse Ox O2 Delivery O2 Flow Rate FiO2 10/05/16 08:21 67 10/05/16 07:48 98.5 19 96/49 100 10/04/16 04:22 Room Air Intake and Output 10/04/16 10/04/16 10/05/16 15:00 23:00 07:00 Intake Total 850 ml 300 ml Output Total 280 ml Balance 850 ml 20 ml Exam Constitutional: alert, oriented Respiratory: clear to auscultation, normal air movement Cardiovascular: nl pulses, regular rate and rhythm Gastrointestinal: nl liver, spleen, non-tender, soft Results Result Diagram: 10/05/16 0625 10/05/16 0620 Results 24 hrs Laboratory Tests Test 10/04/16 15:36 10/05/16 00:30 10/05/16 06:20 10/05/16 06:25 Sodium Level 139 136 Potassium Level 5.7 H 5.5 H Chloride Level 116 H 118 H Carbon Dioxide Level 18 L 17 L Anion Gap 11 7 L Blood Urea Nitrogen 62 H 62 H Creatinine 5.79 H 5.89 H Glucose Level 87 81 Calcium Level 8.4 8.0 L Urine Color LT. YELLOW Urine Clarity SLIGHTLY CLOUDY Urine pH 5.5 Urine Specific [place] 1.025 Urine Ketones NEGATIVE Urine Nitrite NEGATIVE Urine Bilirubin NEGATIVE Urine Urobilinogen 0.2 E.U./dL Urine Leukocyte Esterase NEGATIVE Urine Microscopic RBC 2-5 Urine Microscopic WBC 2-5 Urine Squamous Epithelial Cells FEW Urine Hyaline Casts MODERATE Urine Granular Casts MODERATE Urine Hemoglobin 2+ H Urine Random Creatinine 141.54 Urine Random Sodium 39 Urine Glucose 0.25% H Urine Total Protein 976.0 H Phosphorus Level 6.5 H Magnesium Level 1.8 White Blood Count 5.4 Red Blood Count 2.41 L Hemoglobin 7.1 L Hematocrit 23.3 L Mean Corpuscular Volume 96.7 Mean Corpuscular Hemoglobin 29.5 Mean Corpuscular Hemoglobin Concent 30.5 L Red Cell Distribution Width 15.8 H Platelet Count 150 # Mean Platelet Volume 11.5 H Neutrophils % 54.7 Lymphocytes % 22.5 Monocytes % 12.0 H Eosinophils % 10.0 H Basophils % 0.6 Nucleated Red Blood Cells % 0.0 Neutrophils # 3.0 Lymphocytes # 1.2 Monocytes # 0.7 Eosinophils # 0.5 Basophils # 0.0 Nucleated Red Blood Cells # 0.0 Iron Level 96 Total Iron Binding Capacity 190 L Percent Iron Saturation 51 Medications Medications Current Medications Metoclopramide HCl (Reglan) 10 mg Q6H PRN IV NAUSEA AND/OR VOMITING; Start at 21:00 Acetaminophen (Tylenol Tab) 650 mg Q6H PRN PO PAIN LEVEL 1-3 OR FEVER; Start at 21:00 Acetaminophen/ Hydrocodone Bitart ([place] (5/325)) 1 tab Q6H PRN PO PAIN LEVEL 4 -6; Start 10/03/16 at 21:00 Acetaminophen/ Hydrocodone Bitart ([place] (5/325)) 2 tab Q6H PRN PO PAIN LEVEL 7 -10; Start 10/03/16 at 21:00 Famotidine (Pepcid) 20 mg HS PO Last administered on 10/04/16t 20:23; Admin Dose 20 MG; Start 10/03/16 at 21:00 Atorvastatin Calcium (Lipitor) 10 mg QHS PO Last administered on 10/04/16 20: 22; Admin Dose 10 MG; Start 10/03/16 at 21:00 Calcitriol (Rocaltrol) 0.25 mcg DAILY PO Last administered on 10/05/16 08:35; Admin Dose 0.25 MCG; Start 10/04/16 at 09:00 Carvedilol (Coreg) 25 mg BID PO Last administered on 10/05/16 08:31; Admin Dose 25 MG; Start 10/03/16 at 21:00 Cilostazol (Pletal) 50 mg BID PO Last administered on 10/05/16 08:31; Admin Dose 50 MG; Start 10/03/16 at 21:00 Ferrous Sulfate (Ferrous Sulfate (Ec)) 325 mg TID PO Last administered on 08:31; Admin Dose 325 MG; Start 10/03/16 at 21:00 Folic Acid (Folic Acid) 1 mg DAILY PO Last administered on 10/05/16 08:32; Admin Dose 1 MG; Start 10/04/16 at 09:00 Hydralazine HCl (Apresoline) 25 mg TID PO Last administered on 10/04/16 20:23 ; Admin Dose 25 MG; Start 10/03/16 at 21:00 Losartan Potassium (Cozaar) 100 mg DAILY PO Last administered on 10/04/16 08: 52; Admin Dose 100 MG; Start 10/04/16 at 09:00; Status Future Hold Miscellaneous Information 1 ea NOTE XX ; Start 10/03/16 at 22:00 Glucose (Glutose) 15 gm Q15M PRN PO DECREASED GLUCOSE; Start 10/03/16 at 22:00 Glucose (Glutose) 22.5 gm Q15M PRN PO DECREASED GLUCOSE; Start 10/03/16 at 22: 00 Dextrose (D50w Syringe) 25 ml Q15M PRN IV DECREASED GLUCOSE; Start 10/03/16 at 22:00 Dextrose (D50w Syringe) 50 ml Q15M PRN IV DECREASED GLUCOSE; Start 10/03/16 at 22:00 Glucagon (Glucagen) 1 mg Q15M PRN IM DECREASED GLUCOSE; Start 10/03/16 at 22:00 Glucose (Glutose) 15 gm Q15M PRN BUCCAL DECREASED GLUCOSE; Start 10/03/16 at 22 :00 Doxazosin Mesylate (Cardura) 2 mg HS PO Last administered on 10/04/16 20:23; Admin Dose 2 MG; Start 10/04/16 at 21:00 Amlodipine Besylate (Norvasc) 2.5 mg DAILY PO ; Start 10/05/16 at 09:00 Linagliptin 5 mg 5 mg DAILY PO Last administered on 10/05/16 08:31; Admin Dose 5 MG; Start 10/04/16 at 11:30 Sodium Chloride (NS) 1,000 ml @ 50 mls/hr Q20H IV ; Start 10/05/16 at 10:00 HANNAH VINCENT MD Oct 05, 2016 10:37
--- NOTE | 2016-10-05 10:42 | PN ---
DATE: 10/05/2016 SUBJECTIVE: The patient is stable, no acute events overnight. I spoke with the patient again today , informing him of the recommendation of hemodialysis. The patient adamantly refuses at this time. I explained the risks and benefits of not doing dialysis. The patient is aware. No other events n oted. The patient denies any nausea, vomiting, or any hemoptysis. OBJECTIVE: VITAL SIGNS: Blood pressure 96/49, respirations 19, pulse 68, temperature 98.5. HEENT: Head is normocephalic. NECK: Supple. HEART: Regular rate. LUNGS: Show diminished breath sounds at base. ABDOMEN: Soft, nontender to palpation without rebound or guarding. EXTREMITIES: Negative for clubbing, cyanosis. No edema. DERMATOLOGIC: No rashes. MUSCULOSKELETAL: No joint effusions. NEUROLOGIC: No change in exam. MEDICATIONS: The patient's medications have been reviewed. LABORATORY DATA: Shows sodium of 136, potassium 5.5, chloride 118, BUN 62, creatinine 5.89, calcium 8.0, phosphorus 6.5. White count 5.4, hemoglobin 7.1, hematocrit of 23.3, platelet count is 150. ASSESSMENT AND PLAN: 1. Nonoliguric acute kidney injury on top of chronic kidney disease, stage IV/V with unknown baseli ne creatinine. Etiology of current acute kidney injury is secondary to acute tubular necrosis. The patient's urinalysis shows evidence of coarse granular casts consistent with tubular injury. The p atient remains nonoliguric. The patient's renal function, however, has not significantly improved. Given the patient's underlying history of CKD, I informed the patient that he may need to initiate dialysis due to his persistent hyperkalemia. The patient is adamantly refusing. At this point, we will continue medical management. We will give the patient gentle fluid challenge. We will continu e to hold diuretics. We will monitor renal function closely. 2. Hyperkalemia secondary to acute kidney injury. The patient's potassium levels remain elevated. We will give the patient a fluid challenge. We will give Kayexalate. The patient is refusing dial ysis. 3. Metabolic acidosis secondary to acute kidney injury. Continue to monitor bicarbonate levels. 4. Mineral bone disorder. Continue to monitor calcium and phosphorus levels. 5. Anemia of chronic disease. Hemoglobin level has dropped to 7 g/dL. We will give Epogen 12,000 units x1. Check an iron panel. 6. Diabetes. Continue Accu-Cheks and sliding scale. 7. History of hypertension. The patient is currently normotensive and hypotensive. Would hold blo od pressure medications. Dictated By: WEA LANCASTER/KRYSTINA Conf#: [id number] DID#: [id number]
[2016-10-05] MEDS: INSULIN ASPART [NOVOLOG] 3 ML PEN SC SCH ×3 (11:51→20:50)
[2016-10-05] MEDS: ACCU-CHEK XX SCH ×2 (13:36→20:05)
[2016-10-05] MEDS: DOXAZOSIN 2 MG TAB PO SCH (20:49)
[2016-10-05] MEDS: ATORVASTATIN 10 MG TAB PO SCH (20:49)
[2016-10-05] MEDS: FAMOTIDINE 20 MG TAB PO SCH (20:49)
[2016-10-06] VITALS (10 sets, daily range): BP systolic 116–140; BP diastolic 57–65; PULSE 66–72; RESP 18–21
[2016-10-06] MEDS: ACCU-CHEK XX SCH ×5 (02:00→20:05)
[2016-10-06] MEDS: SOD CHLORIDE 0.9% 1,000 ML IV SCH (05:32)
[2016-10-06] MEDS: INSULIN ASPART [NOVOLOG] 3 ML PEN SC SCH ×4 (08:00→21:00)
[2016-10-06] MEDS: LINAGLIPTIN 5 MG TABLET PO SCH (08:13)
[2016-10-06] MEDS: CALCITRIOL 0.25 MCG CAP PO SCH (08:13)
[2016-10-06] MEDS: FERROUS SULFATE (EC) 325 MG TAB PO SCH ×3 (08:13→21:58)
[2016-10-06] MEDS: CILOSTAZOL 100 MG TAB PO SCH ×2 (08:14→22:04)
[2016-10-06] MEDS: FOLIC ACID 1 MG TAB PO SCH (08:14)
[2016-10-06 08:27] LABS: ADD SCAN DIFF NO
[2016-10-06 08:45] LABS: BASOPHILS % 0.8 % (0.0-2.0); EOSINOPHILS # 0.5 10^3/ul (0.0-0.5); LYMPHOCYTES # 1.5 10^3/ul (0.8-2.9); MEAN CORPUSCULAR HEMOGLOBIN 29.4 pg (29.0-33.0); MEAN CORPUSCULAR HGB CONC 30.4 g/dl (32.0-37.0); MEAN CORPUSCULAR VOLUME 96.6 fl (82.0-101.0); MEAN PLATELET VOLUME 11.9 fl (7.4-10.4); MONOCYTE # 0.6 10^3/ul (0.3-0.9); MONOCYTES % 11.3 % (0.0-11.0); NEUTROPHIL # 2.6 10^3/ul (1.6-7.5); NEUTROPHILS % 49.5 % (39.0-77.0); PLATELET COUNT 148 10^3/UL (140-415); RED BLOOD COUNT 2.38 10^6/ul (4.70-6.10); RED CELL DISTRIBUTION WIDTH 15.6 % (11.5-14.5); WHITE BLOOD COUNT 5.2 10^3/ul (4.8-10.8)
[2016-10-06 08:57] LABS: POTASSIUM 5.2 mmol/L (3.5-5.1)
[2016-10-06 08:59] LABS: CREATININE 5.96 mg/dl (0.61-1.24)
[2016-10-06 09:00] LABS: CALCIUM 7.6 mg/dl (8.4-10.2); PHOSPHORUS 5.5 mg/dl (2.5-4.9)
[2016-10-06 09:01] LABS: MAGNESIUM 1.8 mg/dl (1.7-2.5)
[2016-10-06] MEDS ORDERED: NA POLYST SULFON 15 GM/60 ML BTL PO ONE (11:00)
--- NOTE | 2016-10-06 11:31 | PN ---
DATE: 10/06/2016 SUBJECTIVE: The patient remains stable, no acute distress. The patient still refuses hemodialysis. I have explained again to the patient that his GFR and kidney function is less than 10%, and he re kieran hyperkalemic. The patient, however, is adamant and refuses. The patient is aware of the risk s and benefits of not doing dialysis. OBJECTIVE: VITAL SIGNS: Blood pressure 130/65, respiration is 20, pulse 67, temperature 98.4. HEENT: Head is normocephalic. NECK: Supple. HEART: Regular rate. LUNGS: Show diminished breath sounds at base. ABDOMEN: Soft, nontender to palpation without rebound or guarding. EXTREMITIES: Negative for clubbing, cyanosis, no edema. DERMATOLOGIC: No rashes. MUSCULOSKELETAL: No joint effusions. NEUROLOGIC: No change in exam. MEDICATIONS: The patient's medications have been reviewed. LABORATORY DATA: Showed sodium 138, potassium 5.2, BUN 60, creatinine 5.97, calcium 7.6, phosphorus 5.5. White count 5.2, hemoglobin 7.9, hematocrit 23.0, platelet count 148. ASSESSMENT AND PLAN: 1. Nonoliguric acute kidney injury on top of chronic kidney disease stage IV/V with an unknown base line creatinine. Etiology of acute kidney injury is secondary to acute tubular necrosis. The patie nt remains nonoliguric. The patient's renal function has not significantly improved and given the jose yeh's underlying history of chronic kidney disease, I recommended dialysis for the patient. The patient has refused as stated above. Risks and benefits were explained to the patient and patient a crystal of risks including . At this point, will continue current medical management. Continue g entle fluid challenge and monitor closely. 2. Hyperkalemia secondary to acute kidney injury, chronic kidney. Will continue gentle fluid chall enge. Will continue Kayexalate. Continue renal diet. 3. Metabolic acidosis secondary to acute kidney injury. Continue to monitor. 4. Mineral bone disorder. Continue to monitor calcium and phosphorus levels. 5. Anemia. Continue to monitor hemoglobin and hematocrit levels, will continue Epogen. 6. Diabetes. Continue Accu-Cheks and sliding scale. 7. History of hypertension. The patient is currently normotensive. Continue to monitor. Dictated By: EWA LAWS DO NR/KRYSTINA Conf#: [id number] [facility]#: [id number]
--- NOTE | 2016-10-06 15:47 | PN ---
Date/Time of Note Date/Time of Note DATE: 10/06/16 TIME: 15:44 Assessment/Plan VTE Prophylaxis VTE Prophylaxis Intervention: SCD's Lines/Catheters IV Catheter Type (from Nrs): Peripheral IV Urinary Cath still in place: No Assessment/Plan Assessment/Plan 1. Acute on chronic renal failure, patient does not want to have HD at this time 2. Hyperkalemia secondary to renal failure, stop losartan, follow up with K 3. Metabolic acidosis secondary to acute kidney injury. Continue to monitor. 4. Hypertension, stop losartan due to hyperkalemia, start on norvasc 5. Anemia. Continue to monitor hemoglobin and hematocrit levels, will continue Epogen. 6. Diabetes. Continue Accu-Cheks and sliding scale. . Exam/Review of Systems Vital Signs Vitals Vital Signs Date Time Temp Pulse Resp B/P Pulse Ox O2 Delivery O2 Flow Rate FiO2 10/06/16 12:00 98.0 69 20 129/62 98 10/04/16 04:22 Room Air Intake and Output 10/05/16 10/05/16 10/06/16 15:00 23:00 07:00 Intake Total 1450 ml 1350 ml Output Total 950 ml 450 ml Balance 500 ml 900 ml Results Result Diagram: 10/06/16 0640 10/06/16 0640 Results 24 hrs Laboratory Tests Test 10/05/16 16:24 10/05/16 20:05 10/06/16 06:40 10/06/16 08:12 Bedside Glucose 117 144 84 White Blood Count 5.2 Red Blood Count 2.38 L Hemoglobin 7.0 L Hematocrit 23.0 L Mean Corpuscular Volume 96.6 Mean Corpuscular Hemoglobin 29.4 Mean Corpuscular Hemoglobin Concent 30.4 L Red Cell Distribution Width 15.6 H Platelet Count 148 Mean Platelet Volume 11.9 H Neutrophils % 49.5 Lymphocytes % 28.0 Monocytes % 11.3 H Eosinophils % 10.0 H Basophils % 0.8 Nucleated Red Blood Cells % 0.0 Neutrophils # 2.6 Lymphocytes # 1.5 Monocytes # 0.6 Eosinophils # 0.5 Basophils # 0.0 Nucleated Red Blood Cells # 0.0 Sodium Level 138 Potassium Level 5.2 H Chloride Level 115 H Carbon Dioxide Level 19 L Anion Gap 9 Blood Urea Nitrogen 63 H Creatinine 5.96 H Glucose Level 77 Calcium Level 7.6 L Phosphorus Level 5.5 H Magnesium Level 1.8 Test 10/06/16 10:09 10/06/16 11:29 10/06/16 14:18 Bedside Glucose 125 153 153 Medications Medications Current Medications Metoclopramide HCl (Reglan) 10 mg Q6H PRN IV NAUSEA AND/OR VOMITING; Start at 21:00 Acetaminophen (Tylenol Tab) 650 mg Q6H PRN PO PAIN LEVEL 1-3 OR FEVER; Start at 21:00 Acetaminophen/ Hydrocodone Bitart (Graham (5/325)) 1 tab Q6H PRN PO PAIN LEVEL 4 -6; Start 10/03/16 at 21:00 Acetaminophen/ Hydrocodone Bitart (Graham (5/325)) 2 tab Q6H PRN PO PAIN LEVEL 7 -10; Start 10/03/16 at 21:00 Famotidine (Pepcid) 20 mg HS PO Last administered on 10/05/16 20:49; Admin Dose 20 MG; Start 10/03/16 at 21:00 Atorvastatin Calcium (Lipitor) 10 mg QHS PO Last administered on 10/05/16 20: 49; Admin Dose 10 MG; Start 10/03/16 at 21:00 Calcitriol (Rocaltrol) 0.25 mcg DAILY PO Last administered on 10/06/16 08:13; Admin Dose 0.25 MCG; Start 10/04/16 at 09:00 Carvedilol (Coreg) 25 mg BID PO Last administered on 10/06/16 08:14; Admin Dose 25 MG; Start 10/03/16 at 21:00 Cilostazol (Pletal) 50 mg BID PO Last administered on 10/06/16 08:14; Admin Dose 50 MG; Start 10/03/16 at 21:00 Ferrous Sulfate (Ferrous Sulfate (Ec)) 325 mg TID PO Last administered on 12:18; Admin Dose 325 MG; Start 10/03/16 at 21:00 Folic Acid (Folic Acid) 1 mg DAILY PO Last administered on 10/06/16 08:14; Admin Dose 1 MG; Start 10/04/16 at 09:00 Losartan Potassium (Cozaar) 100 mg DAILY PO Last administered on 10/04/16 08: 52; Admin Dose 100 MG; Start 10/04/16 at 09:00; Status Future Hold Miscellaneous Information 1 ea NOTE XX ; Start 10/03/16 at 22:00 Glucose (Glutose) 15 gm Q15M PRN PO DECREASED GLUCOSE; Start 10/03/16 at 22:00 Glucose (Glutose) 22.5 gm Q15M PRN PO DECREASED GLUCOSE; Start 10/03/16 at 22: 00 Dextrose (D50w Syringe) 25 ml Q15M PRN IV DECREASED GLUCOSE; Start 10/03/16 at 22:00 Dextrose (D50w Syringe) 50 ml Q15M PRN IV DECREASED GLUCOSE; Start 10/03/16 at 22:00 Glucagon (Glucagen) 1 mg Q15M PRN IM DECREASED GLUCOSE; Start 10/03/16 at 22:00 Glucose (Glutose) 15 gm Q15M PRN BUCCAL DECREASED GLUCOSE; Start 10/03/16 at 22 :00 Doxazosin Mesylate (Cardura) 2 mg HS PO Last administered on 10/05/16 20:49; Admin Dose 2 MG; Start 10/04/16 at 21:00 Linagliptin 5 mg 5 mg DAILY PO Last administered on 10/06/16 08:13; Admin Dose 5 MG; Start 10/04/16 at 11:30 Sodium Chloride (NS) 1,000 ml @ 50 mls/hr Q20H IV Last administered on 05:32; Admin Dose 50 MLS/HR; Start 10/05/16 at 10:00 Hydralazine HCl (Apresoline) 25 mg BID PO Last administered on 10/06/16 08:14 ; Admin Dose 25 MG; Start 10/05/16 at 21:00 Diagnostic Test (Pha) (Accu-Chek) 1 ea 02 XX ; Start 10/06/16 at 02:00 Diagnostic Test (Pha) (Accu-Chek) 1 ea 02 XX ; Start 10/06/16 at 02:00 ISA CHURCH MD Oct 06, 2016 15:47
[2016-10-06 17:12] LABS: MICROALBUMIN 430.9 mg/dL
[2016-10-06] MEDS: FAMOTIDINE 20 MG TAB PO SCH (21:58)
[2016-10-06] MEDS: ATORVASTATIN 10 MG TAB PO SCH (21:59)
[2016-10-06] MEDS: DOXAZOSIN 2 MG TAB PO SCH (22:00)
[2016-10-07] VITALS (10 sets, daily range): BP systolic 112–124; BP diastolic 55–80; PULSE 66–70; RESP 20
[2016-10-07] MEDS: ACCU-CHEK XX SCH ×4 (01:47→14:00)
[2016-10-07 07:26] LABS: ADD SCAN DIFF NO
[2016-10-07 07:42] LABS: BASOPHILS % 0.8 % (0.0-2.0); EOSINOPHILS # 0.6 10^3/ul (0.0-0.5); EOSINOPHILS % 11.1 % (0.0-7.0); HEMOGLOBIN 7.2 g/dl (14.0-18.0); LYMPHOCYTES # 1.4 10^3/ul (0.8-2.9); MEAN CORPUSCULAR HEMOGLOBIN 29.6 pg (29.0-33.0); MEAN CORPUSCULAR HGB CONC 31.3 g/dl (32.0-37.0); MEAN CORPUSCULAR VOLUME 94.7 fl (82.0-101.0); MEAN PLATELET VOLUME 11.9 fl (7.4-10.4); MONOCYTE # 0.6 10^3/ul (0.3-0.9); MONOCYTES % 11.7 % (0.0-11.0); NEUTROPHIL # 2.5 10^3/ul (1.6-7.5); NEUTROPHILS % 49.2 % (39.0-77.0); PLATELET COUNT 148 10^3/UL (140-415); RED BLOOD COUNT 2.43 10^6/ul (4.70-6.10); RED CELL DISTRIBUTION WIDTH 15.4 % (11.5-14.5)
[2016-10-07 07:46] LABS: CALCIUM 7.6 mg/dl (8.4-10.2); CREATININE 5.31 mg/dl (0.61-1.24); MAGNESIUM 1.8 mg/dl (1.7-2.5); PHOSPHORUS 4.8 mg/dl (2.5-4.9)
[2016-10-07] MEDS: INSULIN ASPART [NOVOLOG] 3 ML PEN SC SCH ×2 (08:00→12:00)
[2016-10-07] MEDS ORDERED: AMLODIPINE 5 MG TAB PO SCH (09:00)
[2016-10-07] MEDS: CALCITRIOL 0.25 MCG CAP PO SCH (09:57)
[2016-10-07] MEDS: FOLIC ACID 1 MG TAB PO SCH (09:58)
[2016-10-07] MEDS: FERROUS SULFATE (EC) 325 MG TAB PO SCH ×2 (09:58→13:51)
[2016-10-07] MEDS: LINAGLIPTIN 5 MG TABLET PO SCH (09:58)
[2016-10-07] MEDS: CILOSTAZOL 100 MG TAB PO SCH (10:01)
[2016-10-07] MEDS ORDERED: EPOETIN 10000 UNITS/ML (NON ESRD/NON ONCOLOGY) SC ONE (11:00)
--- NOTE | 2016-10-07 12:01 | PN ---
DATE: 10/07/2016 SUBJECTIVE: The patient is stable, no acute events overnight. No fevers, chills, nausea, vomiting, no shortness of breath. OBJECTIVE: VITAL SIGNS: Blood pressure 118/59, respirations 20, pulse 69, temperature 98.3. HEENT: Head is normocephalic. NECK: Supple. HEART: Regular rate. LUNGS: Show diminished breath sounds at the base. ABDOMEN: Soft, nontender to palpation. No rebound or guarding. EXTREMITIES: Negative for clubbing, cyanosis, no edema. DERMATOLOGIC: No rashes. MUSCULOSKELETAL: No joint effusions. NEUROLOGIC: No change in exam. MEDICATIONS: The patient's medications have been reviewed. LABORATORY DATA: Shows sodium 135, potassium 5.0, chloride 119, BUN 58, creatinine 5.31. White cou nt 5.0, hemoglobin 7.2, hematocrit 23.0, platelet count is 148. ASSESSMENT AND PLAN: 1. Nonoliguric acute kidney injury on top of chronic kidney disease stage IV/V with unknown baselin e creatinine. Etiology of acute kidney injury is secondary to acute tubular necrosis. The patient currently remains nonoliguric. The patient's renal function has shown some mild improvement since a dmission. However, the patient's overall EGFR remains quite low. The patient has no overt uremic s ymptoms. The patient is refusing to start dialysis at this time. At this point, will continue curr ent treatment plan, supportive care, renally dose all meds. We will discontinue IV fluids as joanie jackson did receive a fluid challenge. 2. Hypokalemia secondary to acute kidney injury, chronic kidney disease. The patient's potassium l evels have normalized. He is status post Kayexalate. Continue low-potassium diet. 3. Metabolic acidosis secondary to acute kidney injury. Continue to monitor. No immediate need fo r bicarbonate therapy at this time. 4. Mineral bone disorder. Continue to monitor calcium, phosphorus levels. 5. Anemia. Continue to monitor hemoglobin and hematocrit levels. Will continue Epogen. 6. Diabetes. Continue current insulin regimen. 7. Hypertension. The patient is currently normotensive. Continue to monitor. Dictated By: EWA LAWS DO NR/NTS Conf#: [id number] DID#: [id number]
--- NOTE | 2016-10-07 16:11 | DS ---
Date/Time of Note Date/Time of Note DATE: 10/07/16 TIME: 16:02 Discharge Summary Admission/Discharge Info Admit Date/Time Oct 03, 2016 at 20:39 Discharge Date/Time Final Diagnosis 1. Acute on chronic renal failure, patient does not want to have HD, Cr is stable 2. Hyperkalemia secondary to renal failure, stop losartan and aldactone 3. Metabolic acidosis secondary to acute kidney injury. 4. Hypertension, controlled 5. Anemia, due to CKD, follow up with PCP. 6. Diabetes. stable Patient Condition: Stable Hospital Course This is a very pleasant 65-year-old male with past medical history of high cholesterol, hypertension and BPH that presents to the emergency department with abnormal outpatient lab work that indicated hyperkalemia. The patient does not know what his potassium level was but did receive a call from his primary care physician that stated he needed to urgently go to the emergency department in order to be further evaluated for an elevated potassium level. The patient states he denies any chest pain or pressure that radiates to the neck arm back or jaw. The patient states he is not on dialysis but does have renal failure taking bumetanide. The patient denies any shortness of breath at rest or exertion. Patient denies any hemoptysis hematemesis or melanotic stools. He denies any gross hematuria no frequency urgency or dysuria no urinary retention. On admission, BUN/CR 63/6.12, K 6.5. Aldactone and bumex were first stopped, IVF was given that improves his BUN/Cr. Losartan was discontinued on 10/06/2016. on 10/07/2016, BUN/Cr 58/5.31 with K 5. HD is repeated discussed with the patient that he declined. He will follow up with PCP/nephrology in one week. Blood pressure is well controlled at 112/55 today on 10/07/2016. Home Meds Active Scripts Tamsulosin Hcl* (Flomax*) 0.4 Mg Capsr, 0.4 MG PO DAILY@21, #1 CAP Prov:JAS RODRIGUEZ MD 08/01/15 Carvedilol* (Coreg*) 25 Mg Tab, 25 MG PO BID, #1 TAB Prov:JAS RODRIGUEZ MD 08/01/15 Reported Medications Pioglitazone Hcl* (Pioglitazone Hcl*) 45 Mg Tablet, 45 MG PO DAILY, TAB 10/03/16 Amlodipine Besylate* (Norvasc*) 5 Mg Tablet, 5 MG PO DAILY, TAB 10/03/16 Bumetanide* (Bumex*) 2 Mg Tab, 2 MG PO BID, TAB 10/03/16 Calcitriol* (Rocaltrol*) 0.25 Mcg Capsule, 0.25 MCG PO DAILY, CAP 10/03/16 Hydralazine Hcl* (Hydralazine Hcl*) 25 Mg Tab, 25 MG PO TID, #90 TAB 10/03/16 Cilostazol* (Cilostazol*) 50 Mg Tablet, 50 MG PO BID, TAB 10/03/16 Atorvastatin Calcium (Atorvastatin Calcium) 10 Mg Tablet, 10 MG PO QHS, #30 TAB 07/27/15 Folic Acid* (Folic Acid*) 1 Mg Tablet, 1 MG PO DAILY, TAB 07/27/15 Ferrous Sulfate* (Ferrous Sulfate*) 325 Mg Tabec, 325 MG PO TID, TAB 07/27/15 Discontinued Reported Medications Losartan Potassium* (Losartan Potassium*) 100 Mg Tablet, 100 MG PO DAILY, TAB 10/03/16 Spironolactone* (Spironolactone*) 100 Mg Tablet, 100 MG PO BID, TAB 10/03/16 Cilostazol* (Cilostazol*) 100 Mg Tablet, 100 MG PO BID, TAB 07/27/15 Discontinued Scripts Cholecalciferol* (Vitamin D3*) 2,000 Unit Cap, 2000 UNIT PO DAILY, #1 CAP Prov:JAS RODRIGUEZ MD 08/01/15 Isosorbide Dinitrate* (Isosorbide Dinitrate*) 20 Mg Tab, 20 MG PO TID, #1 TAB Prov:JAS RODRIGUEZ MD 08/01/15 Glucagon* (Glucagen*) 1 Mg Soln, 1 MG IM Q15M Y for DECREASED GLUCOSE, #1 Prov:JAS RODRIGUEZ MD 08/01/15 Hydralazine Hcl* (Hydralazine Hcl*) 50 Mg Tab, 50 MG GTB TID, #1 TAB Prov:JAS RODRIGUEZ MD 08/01/15 Insulin Aspart* (Novolog Insulin Pen*) 100 Unit/Ml Soln, 0 UNIT SC WITH MEALS BEDTIME, #1 Prov:JAS RODRIGUEZ MD 08/01/15 Follow-up Plan PCP and nephrology in one week Pending Labs Laboratory Tests Test 10/06/16 16:54 10/06/16 22:02 10/07/16 06:10 10/07/16 08:02 Bedside Glucose 104mg/dL (70-220) 102mg/dL (70-220) 86mg/dL (70-220) White Blood Count 5.010^3/ul (4.8-10.8) Red Blood Count 2.4310^6/ul (4.70-6.10) Hemoglobin 7.2g/dl (14.0-18.0) Hematocrit 23.0% (42.0-52.0) Mean Corpuscular Volume 94.7fl (82.0-101.0) Mean Corpuscular Hemoglobin 29.6pg (29.0-33.0) Mean Corpuscular Hemoglobin Concent 31.3g/dl (32.0-37.0) Red Cell Distribution Width 15.4% (11.5-14.5) Platelet Count 19019^3/UL (140-415) Mean Platelet Volume 11.9fl (7.4-10.4) Neutrophils % 49.2% (39.0-77.0) Lymphocytes % 27.0% (15.0-51.0) Monocytes % 11.7% (0.0-11.0) Eosinophils % 11.1% (0.0-7.0) Basophils % 0.8% (0.0-2.0) Nucleated Red Blood Cells % 0.0/100WBC (0.0-0.0) Neutrophils # 2.510^3/ul (1.6-7.5) Lymphocytes # 1.410^3/ul (0.8-2.9) Monocytes # 0.610^3/ul (0.3-0.9) Eosinophils # 0.610^3/ul (0.0-0.5) Basophils # 0.010^3/ul (0.0-0.1) Nucleated Red Blood Cells # 0.010^3/ul (0.0-0.0) Sodium Level 135mmol/L (135-144) Potassium Level 5.0mmol/L (3.5-5.1) Chloride Level 118mmol/L (97-110) Carbon Dioxide Level 17mmol/L (21-31) Anion Gap 5 (8-16) Blood Urea Nitrogen 58mg/dl (7-20) Creatinine 5.31mg/dl (0.61-1.24) Glucose Level 82mg/dl (70-220) Calcium Level 7.6mg/dl (8.4-10.2) Phosphorus Level 4.8mg/dl (2.5-4.9) Magnesium Level 1.8mg/dl (1.7-2.5) Test 10/07/16 10:03 10/07/16 12:29 10/07/16 15:14 Bedside Glucose 105mg/dL (70-220) 121mg/dL (70-220) 110mg/dL (70-220) ISA CHURCH MD Oct 07, 2016 16:11
== END 2016-10-07 18:12 | disposition home or self-care (01) | DRG 640 ==
LOC: E/R 14:33 → MS4 20:39
PROVIDERS: ADMIT Family Medicine; ATTEND Family Medicine
DX: E87.5 Hyperkalemia (principal); N17.0 Acute kidney failure with tubular necrosis; N18.5 Chronic kidney disease, stage 5; I12.0 Hypertensive chronic kidney disease with stage 5 chronic kidney disease or end stage renal disease; N13.8 Other obstructive and reflux uropathy; I44.7 Left bundle-branch block, unspecified; N40.1 Benign prostatic hyperplasia with lower urinary tract symptoms; E83.9 Disorder of mineral metabolism, unspecified; E87.2 Acidosis; E11.22 Type 2 diabetes mellitus with diabetic chronic kidney disease; D63.1 Anemia in chronic kidney disease; Z99.2 Dependence on renal dialysis; Z79.4 Long term (current) use of insulin
CPT/HCPCS: 71010; 76775; 80048; 80051; 80053; 81001; 81003; 82043; 82150; 82728; 82962; 83036; 83540; 83690; 83735; 84100; 84155; 84300; 84484; 85025; 85610; 85730; 87086; 93005; 96374; 96375; J0885; J0886; J1815; J1940; J7030